=== PATIENT | female | born 1955 | race Caucasian/White ===

== ENCOUNTER → 2021-04-27 08:09 | Outpatient (CLI) | payer MEDICARE, SELFPAY ==
[2021-04-20 06:59] VITALS: BMI 25.4
--- NOTE | 2021-04-27 14:26 | PFTCOMP ---
COMPLETE PULMONARY FUNCTION TEST INTERPRETATION Brief HPI: Patient is a 65 year old female, currently under the care of myself, who presents to [facility] for complete pulmonary function tests secondary to diagnosis of asthma. Respiratory therapist reports good effort and reproducible results. Interpretation: Forced expiration spirometry shows a mild large airways obstructive ventilatory defect with an FEV1 of 98% predicted. There is a significant bronchodilator response in FVC and FEV1 by strict ATS criteria. Spirograms are of good quality and plateau slowly, indicating slowly emptying areas of the lungs. The respiratory flow volume loop shows decreased expiratory flow rates at all lung volumes consistent with airway obstruction. Lung volumes by body plethysmography show an elevated total lung capacity at 5.57 L, 125% predicted. FRC and RV are elevated out of proportion. Lung volume measurements are consistent with hyperinflation and air-trapping. Diffusion capacity by carbon monoxide is normal at 104% predicted. The airway resistance is elevated. No previous pulmonary function tests were available for review. Impression: Partially reversible mild large airways obstructive ventilatory defect resulting in air trapping with hyperinflation
== END ==
PROVIDERS: PCP Family Medicine; Referring Provider Internal Medicine Critical Care Medicine; Visit Provider Internal Medicine Critical Care Medicine
DX: J45.909 Unspecified asthma, uncomplicated (principal)
CPT/HCPCS: 94060; 94726; 94729

== ENCOUNTER → 2025-08-24 | Outpatient (CLI) | payer MEDICARE, SELFPAY | END | disposition home or self-care (01) | LOC: PSN 09:10 | PROVIDERS: PCP Family Medicine; Referring Provider Nurse Practitioner Family; Visit Provider Nurse Practitioner Family | DX: J45.20 Mild intermittent asthma, uncomplicated (principal) | CPT/HCPCS: 94060; 94726; 94729 ==

== ENCOUNTER → 2025-09-30 | Outpatient (CLI) | payer MEDICARE, SELFPAY ==
--- NOTE | 2025-09-30 12:46 | ECHOD_ITS ---
Reason For Study Reason For Study: SOB Procedure This was a 2D Doppler, Color Flow transthoracic echocardiogram. Myocardial strain analysis was performed in this exam to aid in the assessment of cardiac function. The patient is in an irregular rhythm. Exam performed in department. Left Ventricle Normal LV size. The global longitudinal strain = -13.9% (abnormal). The estimated ejection fraction is 45-50 %. Unable to assess diastolic dysfunction. There is mild global hypokinesis of the left ventricle. Right Ventricle Normal RV size. Normal systolic function. Atria The left atrium is moderately enlarged. Normal right atrium. No doppler evidence for ASD. Mitral Valve There is moderate mitral annular calcification. There is no mitral valve stenosis. Trivial mitral valve insufficiency. Tricuspid Valve There is no tricuspid stenosis. Trivial tricuspid valve insufficiency. Unable to estimate RV systolic pressure due to insufficient tricuspid regurgitant envelope. Aortic Valve Trisinus/trileaflet aortic valve. There is no aortic stenosis. No aortic valve insufficiency. Pulmonic Valve There is no pulmonic valvular stenosis. Trivial pulmonic valve insufficiency. Great Vessels Normal sized aortic root. Pericardium/Pleural No pericardial effusion. MMode/2D Measurements & Calculations LVIDd: 5.0 cm IVSd: 0.87 cm Ao root diam: 3.6 cm LVIDs: 4.5 cm LVPWd: 0.87 cm RVDd: 3.8 cm FS: 9.7 % LAV(MOD-bp): 84.3 ml LVAd ap4: 30.3 cm2 LVAd ap2: 29.1 cm2 LAV(MOD-bp) Indexed: 50.5 ml/m2 LVLd ap4: 7.9 cm LVLd ap2: 7.8 cm LAV(MOD-sp2): 93.9 ml EDV(MOD-sp4): 96.8 ml EDV(MOD-sp2): 90.2 ml LAV(MOD-sp4): 75.9 ml EDV(sp4-el): 98.8 ml EDV(sp2-el): 92.2 ml LVAs ap4: 21.6 cm2 LVAs ap2: 21.2 cm2 LVLs ap4: 7.0 cm LVLs ap2: 7.0 cm ESV(MOD-sp4): 56.2 ml ESV(MOD-sp2): 55.2 ml ESV(sp4-el): 56.1 ml ESV(sp2-el): 55.1 ml EF(MOD-sp4): 41.9 % EF(MOD-sp2): 38.9 % EF(sp4-el): 43.2 % SV(MOD-sp4): 40.5 ml SV(MOD-sp2): 35.1 ml EDV(MOD-bp): 93.3 ml SI(MOD-sp4): 24.2 ml/m2 SI(MOD-sp2): 21.0 ml/m2 ESV(MOD-bp): 55.6 ml EF(MOD-bp): 40.4 % SV(sp4-el): 42.7 ml LA dimension(2D): 3.9 cm LA A4 area: 22.7 cm2 RA A4 area: 13.9 cm2 TAPSE: 2.2 cm Time Measurements MV dec time: 0.19 sec Doppler Measurements & Calculations MV E max brandon: 72.4 cm/sec Lat Peak E' Brandon: 2.4 cm/sec Med Peak E' Brandon: 5.5 cm/sec MV A max brandon: 92.7 cm/sec E/E' lat: 30.3 E/E' med: 13.2 MV E/A: 0.78 MV V2 max: 120.4 cm/sec MV P1/2t max brandon: 66.0 cm/sec Ao V2 max: 101.5 cm/sec MV max P.8 mmHg MV P1/2t: 58.1 msec Ao max P.1 mmHg MV V2 mean: 57.1 cm/sec Ao V2 mean: 74.7 cm/sec MV mean P.6 mmHg MV dec slope: 332.8 cm/sec2 Ao mean P.4 mmHg MV V2 VTI: 26.7 cm MVA(P1/2t): 3.8 cm2 Ao V2 VTI: 23.7 cm AV (velocity ratio): 0.95 LV V1 max: 94.7 cm/sec MR max brandon: 473.7 cm/sec PA V2 max: 79.9 cm/sec LV V1 max P.6 mmHg MR max P.7 mmHg LV V1 mean P.9 mmHg LV V1 mean: 64.6 cm/sec LV V1 VTI: 22.4 cm TR max brandon: 236.9 cm/sec TR max P.4 mmHg ECHO/Echo Complete Interpretation Summary The estimated ejection fraction is 45-50 %. There is mild global hypokinesis of the left ventricle. The left atrium is moderately enlarged. Trivial mitral valve insufficiency. Ordering Physician: Romina Prather Referring Physician: Romina Prather Performed By: Glen Acosta RCS
== END | disposition home or self-care (01) ==
LOC: CVS 12:45
PROVIDERS: PCP Family Medicine; Referring Provider Nurse Practitioner Family; Visit Provider Nurse Practitioner Family
DX: R06.02 Shortness of breath (principal)
CPT/HCPCS: 93306